=== PATIENT | male | born 1960 | race Caucasian/White ===

== ENCOUNTER → 2017-06-10 | Day surgery (SDC) | payer OTHER ==
[~2017-06-10] VITALS: Ht 165.1 cm; Wt 80.0 kg
[~2017-06-10] MED LIST: 0.9% Sodium Chloride 1,000 ML IV PRN; ASPI-973 PO; CYAN500 PO; METF500T4 PO; NAPR220C11 PO; SIMV40TA5 PO; Sodium Chloride LOK Flush 10 mL Syringe IV PRN; TAMS0.4C98 PO; TEST200V20 IM; fentaNYL-PF 50 mCg/mL 2 mL Inj IVPUSH PRN
[2017-06-10 13:22] VITALS: BP 151/94; PULSE 81; RESP 16; O2SAT 96
[2017-06-10 15:13] VITALS: BP 140/80; PULSE 75; RESP 16; O2SAT 97
--- NOTE | 2017-06-10 15:13 | PCM.ENDCOL ---
Colonoscopy Date of Service: Jun 10, 2017 Physician Min Ahuja MD Pre Procedure Diagnosis: Screening Post Procedure Dx & Findings: Fair prep hemorrhoids diverticula Procedure Colonoscopy PROCEDURE IN DETAIL: Prep fair Withdrawal time 12 minutes After unremarkable rectal examination the Olympus video colonoscope was inserted patient's anal canal and was advanced to cecum. Landmarks were identified including the ileocecal valve and appendiceal orifice. Scope was withdrawn systematically. Visualized colonic mucosa showed healthy shiny mucosa with normal healthy-appearing vasculature. Several small sized diverticulumis noted in the sigmoid colon. In the rectum retroflexion was done which showed hemorrhoids. Anal canal was inspected carefully on the way out and hemorrhoids noted. Impression Fair prep Diverticuli Hemorrhoids Recommendation Repeat colonoscopy 2 years with a 2-3 day prep. Diverticular diet Presedation Assessment Risks and Benefits Informed consent was obtained from the patient after all risks and benefits including but not limited to drug reaction, infection, pain, bleeding, perforation, as well as alternatives were discussed. Patient monitoring Continuous pulse oximetry, cardiac monitoring, blood pressure monitoring, IV access, and oxygen at 2L per nasal cannula. Periprocedural Fentanyl: Fentanyl 100mcg Incrementally Midazolam: Midazolam 5mg Incrementally Complications There were no periprocedural complications identified. Post Procedure Plan Post Procedure Recommendations 1. Restrict activities today. 2. Resume normal activities in the morning. 3. Resume medications. 4. Patient informed of normal post procedure side effects as bloating, drowsiness, blood streaking in the stool. 5. average risk CRCS. If colon polyps come back as: -Hyperplastic- can repeat colonoscopy in 10 years -Tubular adenoma- repeat colonoscopy in 5 years -Tubulovillous/villous adenoma- repeat colonoscopy in 3 years -If any dysplasia- return to clinic as soon as possible 6. Please don't hesitate to call me with any questions. Min Ahuja MD Jun 10, 2017 15:13
[2017-06-10 15:23] VITALS: BP 137/79; PULSE 88; RESP 16; O2SAT 97
[2017-06-10 15:30] VITALS: BP 131/87; PULSE 71; RESP 16; O2SAT 97
== END | disposition home or self-care (01) ==
LOC: END 01:24
PROVIDERS: ATTEND Internal Medicine
DX: Z12.11 Encounter for screening for malignant neoplasm of colon (principal); Z83.71 Family history of colonic polyps; K57.30 Diverticulosis of large intestine without perforation or abscess without bleeding; K64.9 Unspecified hemorrhoids; Z79.82 Long term (current) use of aspirin
CPT/HCPCS: 99153; G0105; G0500; J2250; J3010; J7030